=== PATIENT | male | born 1945 | race Caucasian/White ===

== ENCOUNTER 2024-02-17 09:31 | Emergency (ER) | payer OTHER ==
[~2024-02-17] VITALS: Ht 182.9 cm; Wt 90.7 kg
[2024-02-17] MEDS: IV NS 0.9% 1,000 ML BAG IV ONE ×2 (10:00→13:01)
[2024-02-17 10:13] LABS: BASOPHILS % (AUTO) 0.4 % (0.0-2.0); EOSINOPHILS # (AUTO) 0.1 K/uL (0.0-0.7); EOSINOPHILS % (AUTO) 1.1 % (0.0-6.0); HEMATOCRIT 33 % (39-51); HEMOGLOBIN 10.5 g/dL (13.5-17.5); LYMPHOCYTES # (AUTO) 0.8 K/uL (0.8-4.8); LYMPHOCYTES % (AUTO) 7.7 % (20.0-44.0); MEAN CORPUSCULAR HEMOGLOBIN 32 PG (26.0-33.0); MEAN CORPUSCULAR HGB CONC 32 g/dl (31.0-36.0); MEAN CORPUSCULAR VOLUME 100 fL (80-96); MONOCYTES # (AUTO) 0.5 K/uL (0.1-1.30); MONOCYTES % (AUTO) 4.9 % (2.0-12.0); NEUTROPHILS # (AUTO) 8.9 K/uL (1.8-8.9); NEUTROPHILS % (AUTO) 85.9 % (43.0-81.0); PLATELET COUNT (AUTO) 164 K/uL (150-450); RED BLOOD CELL COUNT(AUTO) 3.28 MIL/uL (4.5-6.0); RED CELL DISTRIBUTION WIDTH 16.6 % (11.5-15.0); WHITE BLOOD COUNT (AUTO) 10.3 K/uL (4.3-11.0)
[2024-02-17 10:28] LABS: ALANINE AMINOTRANSFERASE 49 U/L (12-78); ALCOHOL, BLOOD < 3 mg/dL (0-10); ALKALINE PHOSPHATASE 149 U/L (46-116); ASPARTATE AMINOTRANSFERASE 37 U/L (15-37); BILIRUBIN,DIRECT 0.3 mg/dL (0.0-0.2); BILIRUBIN,TOTAL 0.9 mg/dL (0.2-1.0); CALCIUM, SERUM 8.3 mg/dL (8.5-10.1); CARBON DIOXIDE 22 mmol/L (21-32); CHLORIDE 103 mmol/L (98-107); CREATININE 1.8 mg/dL (0.6-1.3); GLUCOSE 261 mg/dL (74-106); SODIUM SERUM 136 mmol/L (136-145); UREA NITROGEN, BLOOD 22 mg/dL (7-18)
[2024-02-17 10:44] LABS: INR 0.98 (0.91-1.10); PARTIAL THROMBOPLASTIN TIME 25.1 SEC (24.3-34.3); PROTHROMBIN TIME 10.4 SECS (9.2-11.1)
[2024-02-17 10:49] LABS: SERUM AMMONIA 21 umol/L (11-32); TOTAL PROTEIN, SERUM 6.3 g/dL (6.4-8.2)
[2024-02-17 11:07] LABS: THYROID STIMULATING HORMONE 5.159 uIU/mL (0.358-3.74)
[2024-02-17] MEDS: ACETAMINOPHEN ES 500 MG TABLET PO ONE (11:45)
[2024-02-17] MEDS ORDERED: ACETAMINOPHEN ES 500 MG TABLET ONE (11:45)
[2024-02-17] MEDS ORDERED: SODIUM POLYSTYRENE SULFONATE 15 G/60 ML BOTTLE ONE (12:48)
[2024-02-17] MEDS: SODIUM POLYSTYRENE SULFONATE 15 G/60 ML BOTTLE PO ONE (13:00)
[2024-02-17 13:02] VITALS: BP 90/68; TEMP 98; O2SAT 96
[2024-02-17] MEDS ORDERED: IBUPROFEN 600 MG TABLET ONE (13:42)
[2024-02-17] MEDS: IBUPROFEN 600 MG TABLET PO ONE (13:45)
== END 2024-02-17 15:01 | disposition short-term general hospital (02) ==
LOC: ER 09:56
DX: R55 Syncope and collapse (principal); N28.9 Disorder of kidney and ureter, unspecified; E87.5 Hyperkalemia; E11.9 Type 2 diabetes mellitus without complications; Z86.79 Personal history of other diseases of the circulatory system; Z87.438 Personal history of other diseases of male genital organs; Z88.0 Allergy status to penicillin
CPT/HCPCS: 99285; 96360; 96361; 93005; 71045; 72125; 70450; 82140; 85025; 80048; 80076; 84132; 36415; 84443; 84484; 85730; 82962; 80320; J7030 ×2; G0480